=== PATIENT | female | born 1995 | race Two or more races ===

== ENCOUNTER 2023-05-05 17:35 | Emergency (ER) | payer OTHER, SELFPAY ==
--- NOTE | ~2023-05-05 | CT_ITS ---
EXAMINATION: CT brain wo con DATE: 05/05/2023 20:30 INDICATION: Numbness. Left-sided headache. TECHNIQUE: Computed tomography (CT) of the head was performed Elaina intravenous contrast. The mA was ad justed according to patient size. Iterative reconstruction technique was employed. The dose-length pr oduct was 605.33 mGy-cm. COMPARISON: None. FINDINGS: No acute intracranial hemorrhage or extra-axial fluid collection. No hydrocephalus, mass, or herniation. No acute ischemic infarct. Unremarkable dural venous sinus attenuation. No acute osseous abnormality. Aerated secretions in the left sphenoid sinus, the remaining aerated spaces are clear. IMPRESSION: No acute intracranial process. Left sphenoid findings may represent acute sinusitis in the appropriate clinical context. Reviewed, dictated and finalized at location K. [employer] IMPRESSION: No acute intracranial process. Left sphenoid findings may represent acute sinusitis in the appropriate clinica l context.
--- NOTE | ~2023-05-05 | CT_ITS ---
EXAMINATION: CTA brain carotid DATE: 05/05/2023 20:31 INDICATION: numbness TECHNIQUE: Computed tomographic angiography (CTA) of the head and neck was performed without and with 100 mL Omnipaque-350 intravenous contrast. Automated exposure control and iterative reconstruction t echnique were employed. The dose-length product was 1013.18 mGy-cm. Maximum intensity projection and volume rendered 3D-reconstructions were created by the technologist on a separate workstation. COMPARISON: CT brain, same date. FINDINGS: Mild motion artifact. Mild metal artifact from earrings which the patient declined to remove. CTA HEAD: No large vessel occlusion, aneurysm, high flow vascular malformation, nidus or extravasation. Symmetr ic proximal enhancement. Patent cerebral veins. Hypoplastic left transverse sinus. CTA NECK: Aortic arch and proximal great vessels: Bovine arch. No plaque. Right common carotid, carotid bifurcation, and internal carotid artery: No plaque.There is 0% stenosi s of the proximal right internal carotid artery relative to normal distal artery lumen diameter (NASC ET criteria). Left common carotid, carotid bifurcation, and internal carotid artery: No plaque.There is 0% stenosis of the proximal left internal carotid artery relative to normal distal artery lumen diameter (NASCET criteria). Vertebral arteries: No significant plaque or stenosis. Left vertebral artery is dominant. Other findings: None. IMPRESSION: No large vessel intracranial occlusion, high-grade intracranial stenosis, or aneurysm. No carotid or vertebral artery occlusion, dissection, or significant stenosis. Reviewed, dictated and finalized at location K. [employer] IMPRESSION: No large vessel intracranial occlusion, high-grade intracranial stenosis, or an eurysm. No carotid or vertebral artery occlusion, dissection, or significant stenosis.
[2023-05-05 17:38] VITALS: BP 95/76; PULSE 91; RESP 18; TEMP 36.4; O2SAT 100
--- NOTE | 2023-05-05 18:00 | ED.HA ---
HPI - Headache General Chief Complaint: Headache Stated Complaint: headache Time Seen by Provider: 05/05/23 17:49 History of Present Illness HPI Narrative: Patient is a 27-year-old female with history of acne here with a headache and numbness. She states that the headache began around 2:00 a.m. today. Family assists with history. they note that since her headache began she has been complaining of burning in her bilateral eyes, light sensitivity, numbness to extremities. She initially was complaining of numbness to her right side to her family, now complaining about numbness to her left side as well as her left face. She denies any weakness. No cough, congestion, fever, chills. No prior history of migraine or stroke. Related Data Allergies Allergy/AdvReac Type Severity Reaction Status Date / Time No Known Allergies Allergy Verified 05/05/23 18:26 Review of Systems Review of Systems: All systems reviewed & are unremarkable except as noted in HPI and below Exam Narrative: GENERAL: Well-appearing, well-nourished, appears to be in pain. HEAD: Normocephalic, atraumatic. EYES: PERRLA and EOMI. ENT: Nares clear. Mucous membranes moist. NECK: Supple. CHEST: Clear to auscultation. No respiratory distress. HEART: Regular rate and rhythm. Normal peripheral pulses. ABDOMEN: Soft, nontender, nondistended. EXTREMITIES: Normal range of motion. No edema. SKIN: Warm, dry, no rash. NEURO: no nystagmus, equal pupils, no facial droop. Subjective numbness to the left face however no sensory deficits appreciated on exam. No upper or lower extremity weakness. No sensory deficits over the left arm or leg. Alert and oriented x3. Course Course Emergency Course: Chart review performed. Patient here with numbness all over my body and headache since 3 PM. Triage vitals grossly normal. Patient seen evaluated, appears to be in pain. No obvious neuro deficits on exam, she does have presence of a headache and light sensitivity, suspect she likely has a complex migraine. Her numbness has migrated to her face, right side, left side. This makes me feel like it is less likely a stroke. Will do CT head, CTA head and neck. Migraine cocktail ordered. Basic lab work, COVID swab ordered as well. Patient and family agreeable. Lab work and imaging reviewed, CBC unremarkable, mild hypokalemia, will replete, otherwise electrolytes and chemistry within normal limits. COVID, influenza, RSV negative. CT brain and CTA negative. Toradol ordered. Will reevaluate. Patient feeling much better. She still does have some mild left-sided headache but the rest of her deficit seemed resolved. Updated on all of her results. Will give additional dose of Toradol and some potassium given her hypokalemia. She denies any chance of being , is not sexually active. Patient re-evaluated, feeling well. Advised Tylenol and ibuprofen for pain. The results of pertinent diagnostic studies and exam findings were discussed. The patient?s provisional diagnosis and plan of care were discussed with the patient and present family. The patient and/or present family expressed understanding of the diagnosis and plan. The nurse was instructed to provide written instructions and appropriate follow-up information. The patient understands their need and responsibility to obtain additional follow-up as instructed. The risks of medications administered and prescribed were discussed with the patient and family present. Vital Signs Vital signs: Vital Signs Temperature 97.6 F 05/05/23 17:38 Pulse Rate 91 05/05/23 17:38 Respiratory Rate 18 05/05/23 17:38 Blood Pressure 95/76 L 05/05/23 17:38 Pulse Oximetry 100 05/05/23 17:38 Oxygen Delivery Room Air 05/05/23 17:38 Temperature 97.6 F 05/05/23 17:38 Pulse Rate 73 05/05/23 19:24 Respiratory Rate 13 05/05/23 19:24 Blood Pressure 119/73 05/05/23 19:24 Pulse Oximetry 100 05/05/23 19:24
[2023-05-05 18:27] VITALS: BP 103/65; PULSE 76; RESP 21; O2SAT 100
[2023-05-05 19:15] LABS: Basophils Percent Auto 0.1 % (0.2-1.2); Eosinophils Percent Auto 0.2 % (0-4.4); Hematocrit 38.9 % (37.0-47.0); Hemoglobin 13.5 g/dL (12.0-15.0); Immature Granulocyte Absolute 0.05 K/mm3 (0.00-0.031); Immature Granulocyte Percent A 0.5 % (0-0.5); Lymphocytes Absolute Auto 1.49 K/mm3 (0.9-3.2); Mean Corpuscular HGB Conc 34.7 g/dl (32-36); Mean Corpuscular Hemoglobin 31.7 pg (26-34); Mean Corpuscular Volume 91.3 fl (80-100); Mean Platelet Volume 9.5 fl (7.4-10.4); Monocytes Absolute Auto 0.4 K/mm3 (0.1-0.6); Monocytes Percent Auto 4.2 % (2.6-8.5); Neutrophils Absolute Auto 7.4 K/mm3 (1.3-6.7); Platelet Count Result 261 k/mm3 (150-375); Red Blood Count 4.26 M/mm3 (4.2-5.4); Red Cell Distribution Width 12.1 % (11.5-14.5); White Blood Count 9.3 K/mm3 (4.5-10.0)
[2023-05-05 19:24] VITALS: BP 119/73; PULSE 73; RESP 13; O2SAT 100
[2023-05-05 19:25] LABS: Alanine Aminotransferase 16 U/L (6-35); Alkaline Phosphatase 79 U/L (38-126); Anion Gap 9 mmol/L (8-16); Aspartate Amino Transferase 24 U/L (14-36); Bilirubin,Total 0.9 mg/dL (0.2-1.3); Blood Urea Nitrogen 12 mg/dL (7-17); Calcium 8.9 mg/dL (8.4-10.2); Carbon Dioxide 20 mmol/L (22-30); Chloride 108 mmol/L (98-107); Estimated CRCL calculation 102 ml/min; Estimated Glomerular Filt Rate > 60; Glucose 111 mg/dL (65-110); Magnesium 1.8 mg/dL (1.6-2.3); Potassium 3.1 mmol/L (3.4-5.0); Prothrombin Time 13.6 Seconds (11.1-14.7); Sodium 137 mmol/L (137-145)
[2023-05-05] MEDS: ACETAMINOPHEN 500 MG TABLET 1000 MG PO (19:44)
[2023-05-05] MEDS: METOCLOPRAMIDE HCL INJ 10 MG/2 ML VIAL IV PUSH (19:46)
[2023-05-05] MEDS: diphenhydrAMINE HCl INJ 50 MG/ML VIAL IV PUSH (19:46)
[2023-05-05] MEDS: SODIUM CHLORIDE 0.9% IV 1,000 ML 999 ML IV CONT (19:46)
[2023-05-05] MEDS: MAGNESIUM SULF 2 GM/WATER 50ML 2 GM/50 ML BAG IVPB (19:46)
[2023-05-05 20:26] LABS: Influenza A QL RT-PCR Negative (Negative); Influenza B QL RT-PCR Negative (Negative); RSV RNA, RT-PCR Negative (Negative); SARS-CoV-2 RNA PCR Negative (Negative)
[2023-05-05] MEDS: POTASSIUM BICARBONATE 25 MEQ TABEF 50 MEQ PO (21:34)
[2023-05-05] MEDS: KETOROLAC 15 MG/ML VIAL (*BKC) IV PUSH (21:34)
[2023-05-05 22:43] VITALS: BP 106/63; PULSE 72; RESP 15; TEMP 36.6; O2SAT 100
== END 2023-05-05 22:44 | disposition home or self-care (01) ==
PROVIDERS: Emergency Provider Student in an Organized Health Care Education/Training Program
DX: G43.909 Migraine, unspecified, not intractable, without status migrainosus (principal); R20.2 Paresthesia of skin; Z20.822 Contact with and (suspected) exposure to COVID-19
CPT/HCPCS: 36415; 70450; 70496; 70498; 80053; 83735; 85025; 85610; 85730; 87637; 96365; 96366; 96375; 99284; A9270; J1200; J1885; J2765; J3475; J7030; Q9967

== ENCOUNTER 2023-06-04 12:39 | Outpatient (CLI) | payer OTHER, SELFPAY ==
[2023-06-04 19:02] LABS: Anion Gap 3 mmol/L (8-16); Blood Urea Nitrogen 9 mg/dL (7-17); Calcium 9.2 mg/dL (8.4-10.2); Carbon Dioxide 28 mmol/L (22-30); Chloride 105 mmol/L (98-107); Estimated Glomerular Filt Rate > 60; Glucose 82 mg/dL (65-110); Potassium 4.9 mmol/L (3.4-5.0); Sodium 136 mmol/L (137-145)
[2023-06-04 19:37] LABS: Thyroid Stimulating Hormone Reflex 0.784 uIU/mL (0.465-4.68)
== END 2023-06-04 12:40 | disposition home or self-care (01) ==
LOC: ANHGOSHLAB 12:41
PROVIDERS: Visit Provider Emergency Medicine
DX: L65.9 Nonscarring hair loss, unspecified (principal); E87.6 Hypokalemia
CPT/HCPCS: 36415; 80048; 84443